=== PATIENT | female | born 1930 | race Caucasian/White ===

== ENCOUNTER 2018-12-27 15:39 | Emergency (ER) ==
[2018-12-27 15:45] VITALS: BP 130/88; TEMP 98.8; BMI 28.4
--- NOTE | 2018-12-27 16:23 | ED.PDOC ---
General ED Provider: Dr. DE VO Chief Complaint: Shoulder Pain/Injury Stated Complaint: 88 y old pleasant lady was getting out of a big truck as her help held her arm up apparently when she already decided to step on the ground.That created a momentary strain on her right arm most hurting in a deltoid area anteriorily.Limited ROM due to the pain,No SS of dislocation or else,However. X ray views are indicated in case of regular or pathological Fx, avulsion.bleed. Time Seen by Physician: 15:45 Mode of Arrival: Walk-In Information Source: Patient Exam Limitations: No limitations Primary Care Provider: BEV KENDRICK Nursing and Triage Documentation Reviewed and Agree: Yes Does patient meet sepsis criteria?: No System Inflammatory Response Syndrome: Not Applicable Sepsis Protocol: For patient's 13 years and over: Temp is 96.8 and below OR 101 and greater Pulse >90 BPM Resp >20/minute Acutely Altered Mental Status Are patient's symptoms suggestive of a new infection, such as: -Pneumonia -Skin, Soft Tissue -Endocarditis -UTI -Bone, Joint Infection -Implantable Device -Acute Abdominal Infection -Wound Infection -Meningitis -Blood Stream Catheter Infection -Unknown Musculoskeletal Complaint Exam - Shoulder Pain Complaint/Exam Onset/Duration: today early pm Symptoms Are: Still present Timing: Constant Episodes Lasting: constant Initial Severity: Moderate Location: Reports: Discrete Character: Reports: Aching Alleviating: Reports: Rest Aggravating: Reports: Movement Associated Signs and Symptoms: Reports: Swelling, Weakness Related History: Reports: Dominant hand right Non-Orthopedic Risk Factors: Reports: None DVT Risk Factors: Reports: None Septic Arthritis Risk Factors: Reports: None Related Surgical History: Reports: None Shoulder Findings: Present: Swelling, Ligamentous instability, Other joint pain Limited Range of Motion: Present: Abduction, Adduction, Extension, External rotation Differential Diagnoses: AC Seperation, Arthritis, Contusion, Dislocation, Closed Fracture, Sprain, Strain, Tendonitis, Bursitis Review of Systems - Review Of Systems Constitutional: Reports: No symptoms Eyes: Reports: No symptoms Ears, Nose, Mouth, Throat: Reports: No symptoms Respiratory: Reports: No symptoms Cardiac: Reports: No symptoms GI: Reports: No symptoms : Reports: No symptoms Musculoskeletal: Reports: Joint pain, Muscle pain, Muscle stiffness Neurological: Reports: No symptoms Endocrine: Reports: No symptoms Hematologic/Lymphatic: Reports: No symptoms All Other Systems: Reviewed and Negative Past Medical History - Past Medical History Previously Healthy: Yes Endocrine: Reports: None Cardiovascular: Reports: None Respiratory: Reports: None Hematological: Reports: None Gastrointestinal: Reports: None Genitourinary: Reports: None Neuro/Psych: Reports: None Musculoskeletal: Reports: None Cancer: Reports: None Last Menstrual Period: N/A - Surgical History General Surgical History: Reports: None - Family History Family History: Reports: None - Social History Smoking Status: Never smoker Hx Substance Use: No Alcohol Screening: None - Immunizations Tetanus Shot up to Date: No Influenza Vaccine within 12 Months: No Pneumococcal Vaccine up to Date: No Physical Exam - Physical Exam Appearance: Thin Ill-appearing: Mild Pain Distress: Moderate Eyes: MAURA, Conjunctiva clear ENT: Ears normal, Nose normal Neck: Supple Respiratory: Airway patent, Breath sounds clear, Breath sounds equal Cardiovascular: RRR, Pulses normal, No rub, No murmur GI/: Soft, Nontender, No masses Musculoskeletal: Limited ROM, Limited strength Skin: Warm, Dry, Normal color Neurological: Sensation intact, Motor intact, Reflexes intact, Cranial nerves intact, Alert, Oriented Psychiatric: Affect appropriate Critical Care Note - Critical Care Note Total Time (mins): 0 Course - Course Orders, Labs, Meds: Orders Category Date Time Status Splint [ED SPLINT APPLICATION] .ONCE EMERGENCY 12/27/18 17:02 Ordered Ibuprofen [Motrin] MEDS 12/27/18 17:04 Stat 400 mg PO ONCE STA SHOULDER, RIGHT MIN 2V Stat RADS 12/27/18 16:30 Completed Medications Generic Name Dose Route Start Last Admin Trade Name Freq PRN Reason Stop Dose Admin Ibuprofen 400 mg 12/27/18 17:04 Motrin PO 12/27/18 17:05 ONCE STA Vital Signs: Temp Pulse Resp BP Pulse Ox 12/27/18 15:39 98.8 F 64 20 130/88 94 L Departure - Departure Time of Disposition: 17:05 Disposition: HOME SELF-CARE Discharge Problem: Rotator cuff tear Instructions: Rotator Cuff Injury (ED) Condition: Fair Pt referred to PMD for follow-up: Yes (f/u with orthopedic clinic in 1-2 days) IPMP verified?: No Additional Instructions: Ibuprofen 400 mg tis x 5 days #15tab Allergies/Adverse Reactions: Allergies amlodipine [From Norvas] Adverse Reaction (Verified 12/27/18 16:38) donepezil [From Aricept] Adverse Reaction (Verified 12/27/18 16:38) Home Medications: Ambulatory Orders Alendronate Sodium [Fosamax] 70 mg PO WEEKLY 12/27/18 Allopurinol 100 mg PO DAILY 12/27/18 Amlodipine Besylate 5 mg PO DAILY 12/27/18 Aspirin [Aspir-Low] 81 mg PO DAILY 12/27/18 Atenolol 25 mg PO BID 12/27/18 Atorvastatin Calcium 40 mg PO DAILY 12/27/18 Cholecalciferol (Vitamin D3) [Vitamin D3] 2,000 unit PO DAILY 12/27/18 Clopidogrel Bisulfate [Clopidogrel] 75 mg PO DAILY 12/27/18 Cyanocobalamin (Vitamin B-12) [Vitamin B-12] 1,000 mcg PO DAILY 12/27/18 Lisinopril/Hydrochlorothiazide [Zestoretic 20-12.5 mg Tablet] 1 each PO DAILY Potassium Chloride 10 meq PO BID 12/27/18 Timolol [Betimol] 1 drop OP DAILY 12/27/18 Disposition Discussed With: Patient, Family
--- NOTE | 2018-12-27 16:57 | DI ---
EXAM: Right shoulder two view HISTORY: Right shoulder injury COMPARISON: None FINDINGS: No fracture or dislocation. Mild osteoarthritis acromioclavicular and humeral joints. Hu meral head appears high-riding, noting patient positioning limits evaluation. IMPERSSION: 1. No fracture or dislocation. 2. Mild osteoarthritis. 3. Suggestion of high-riding humeral head, suggesting rotator cuff tear.
[2018-12-27] MEDS ORDERED: MOTRIN PO STA (17:04)
== END 2018-12-27 17:37 | disposition home or self-care (01) ==
LOC: ED 15:39
DX: S46.011A Strain of muscle(s) and tendon(s) of the rotator cuff of right shoulder, initial encounter (principal); X50.1XXA Overexertion from prolonged static or awkward postures, initial encounter
CPT/HCPCS: 99283